=== PATIENT | female | born 2000 | race Caucasian/White ===

== ENCOUNTER 2023-10-03 09:57 | Outpatient (CLI) | payer OTHER, SELFPAY ==
--- NOTE | ~2023-10-03 | US_ITS ---
Pelvic ultrasound. Clinical History: Irregular menses Technique: Realtime transabdominal and transvaginal scanning of the pelvis was performed. Color flow Doppler and Doppler spectral analysis were performed. Findings: The uterus is anteverted, and measures 5.4 x 2.9 cm. The endometrial stripe has a thicknes s of 9 mm. No focal mass is identified. The right ovary measures 2.5 x 1.4 x 1.0 cm. No significant right ovarian or adnexal mass is seen. The left ovary measures 2.7 x 2.5 x 1.9 cm. No significant left ovarian or adnexal mass is seen. There is trace free fluid in the cul de sac. Impression: Trace free fluid, otherwise unremarkable exam. Reviewed, dictated and finalized at location . Impression: Trace free fluid, otherwise unremarkable exam.
== END 2023-10-03 09:58 | disposition home or self-care (01) ==
LOC: ANHIMG 10:00
PROVIDERS: PCP Pediatrics; Visit Provider Obstetrics & Gynecology
DX: N92.6 Irregular menstruation, unspecified (principal)
CPT/HCPCS: 76830; 76856

== ENCOUNTER 2024-08-06 16:25 | Outpatient (CLI) | payer OTHER, SELFPAY ==
[2024-08-06 17:25] LABS: Beta HCG Quantitative < 2.39 mIU/ML
== END 2024-08-06 16:26 | disposition home or self-care (01) ==
LOC: ANHLAB 16:26
PROVIDERS: PCP Pediatrics; Visit Provider Obstetrics & Gynecology
DX: N92.6 Irregular menstruation, unspecified (principal)
CPT/HCPCS: 36415; 84702

== ENCOUNTER 2025-06-14 10:40 | Emergency (ER) | payer OTHER, SELFPAY ==
[2025-06-14 10:54] VITALS: BP 116/70; PULSE 74; RESP 16; TEMP 36.1; O2SAT 100
--- NOTE | 2025-06-14 12:30 | ED.FEMALEGU ---
HPI - Female Genitourinary General Chief complaint: Urogenital-Female Stated complaint: Uti Symptoms Time Seen by Provider: 06/14/25 12:16 Source: patient and RN notes reviewed Mode of arrival: ambulatory Limitations: no limitations History of Present Illness HPI Narrative: 25-year-old female patient presents today complaining of urgency and dysuria x3 days. Denies nausea, vomiting, fever, abdominal pain. She has been taking azo for her symptoms. Two weeks ago patient was diagnosed with a UTI and treated with Macrobid, which she finished. Related Data Home Medications ?Medication ?Instructions ?Recorded ?Confirmed ?Last Taken ?Type copper 380 square mm intrauterine 1 device intrauterine ONCE 09/29/24 06/14/25 Unknown History device (ParaGard T 380A) Allergies Allergy/AdvReac Type Severity Reaction Status Date / Time codeine Allergy Severe Rash Verified 06/14/25 11:03 [facility] Past Medical History Medical History Encounter for insertion of ParaGard IUD 08/07/2024 Depression Family History Family History Other Parkinson disease Social History Social History Smoking status: Never smoker Alcohol intake: current Alcohol use details: socially Substance use: never Substance use type: does not use Do You Feel Safe in your Home?: Yes Lack of Transportation: No Lack of Food: Never True Current Housing: I Have Housing Concerned About Future Housing: No Difficulty Paying Gas/Electric Bills: No Difficulty Paying for Meds: No Currently Unemployed: No Education: High School Diploma/GED Difficulty w/ Childcare or Family Care: No Living arrangements: with roommate(s) Occupation/Education: occupation Additional occupation/education comments: teacher Gender identity (if verbalized by the patient): Female Sexual Orientation (if Verbalized by the Patient): Straight or Heterosexual Comments At time of signature, I have reviewed and agree with nursing past medical, surgical, social and family history unless otherwise noted. Please see nursing chart for further information. There is no relevant family history pertinent to the presenting complaint Exam Narrative: GENERAL: Well-appearing, well-nourished, and in no acute distress. HEAD: Normocephalic, atraumatic. EYES: EOMI. No redness or drainage. Conjunctivae normal. ENT: Mucous membranes pink and moist. NECK: Normal AROM. CHEST: No respiratory distress. Clear to auscultation. HEART: Regular rate and rhythm. No murmur appreciated. ABDOMEN: Soft, nondistended, normal active bowel sounds. -CVAT+ suprapubic tenderness. EXTREMITIES: Normal range of motion. No edema. SKIN: Warm, dry, no rash. Capillary refill normal. Normal skin turgor. NEURO: No focal deficits. Alert and oriented x3. Gait steady. PSYCH: Normal affect. No signs of depression or anxiety. Course Course Level of Care: Express Care Visit Vital Signs Vital signs: Vital Signs Temperature 97 F L 06/14/25 10:54 Pulse Rate 74 06/14/25 10:54 Respiratory Rate 16 06/14/25 10:54 Blood Pressure 116/70 06/14/25 10:54 Pulse Oximetry 100 06/14/25 10:54 Temperature 97 F L 06/14/25 10:54 Pulse Rate 74 06/14/25 10:54 Respiratory Rate 16 06/14/25 10:54 Blood Pressure 116/70 06/14/25 10:54 Pulse Oximetry 100 06/14/25 10:54 Reviewed MDM - Female Genitourinary MDM Narrative Medical decision making narrative: 25-year-old female patient presents today complaining of urgency and dysuria x3 days. Denies nausea, vomiting, fever, abdominal pain. She has been taking azo for her symptoms. Two weeks ago patient was diagnosed with a UTI and treated with Macrobid, which she finished. Upon exam, patient has some mild suprapubic tenderness. No CVA tenderness. Unable to complete urinalysis due to azo use. Culture pending. Due to patient's symptoms, will start her on Augmentin for presumed infection. Patient agrees with plan. Vital signs stable. Anticipatory guidance given. ED precautions given. Differential Diagnosis Differential diagnosis: Likely urinary tract infection, vaginitis, cystitis and other (Pyelonephritis) Critical Care Time Critical Care Time Critical Care Time: No Discharge Plan Discharge Clinical Impression: UTI symptoms Patient Disposition: Home Condition: Stable Instructions: Antibiotic Form, Urinary Tract Infection in Women (ED) Additional Instructions: Your urine will be sent to the hospital for urine culture. Take the Augmentin as prescribed until gone. You will be notified if your antibiotics need to be changed. As discussed, if symptoms worsen to include severe abdominal or back pain, fever, nausea or vomiting, sweats or chills, please go to the ER immediately for further evaluation and treatment. Patient Language: Afghan Prescriptions: New amoxicillin-pot clavulanate 875-125 mg tablet 1 tablet PO Q12H 7 Days Qty: 14 0RF No Action ParaGard T 380A 380 square mm intrauterine device 1 device intrauterine ONCE Rx Instructions: as a single dose Follow-up/Referrals: Gemini,Jeniffer Tse APRN [Primary Care Provider, Unknown] Time of Disposition: 12:34
== END 2025-06-14 12:38 | disposition home or self-care (01) ==
PROVIDERS: Emergency Provider Nurse Practitioner; PCP Nurse Practitioner
DX: R30.0 Dysuria (principal); R39.15 Urgency of urination
CPT/HCPCS: 87086; 99213; G0463